=== PATIENT | female | born 1990 | race Two or more races ===

== ENCOUNTER 2024-10-03 16:10 | Emergency (ER) | payer MEDICAID, SELFPAY ==
[2024-10-03 16:20] VITALS: BP 143/82; PULSE 87; RESP 18; TEMP 36.9; O2SAT 99; BMI 34.7
--- NOTE | 2024-10-03 16:25 | XR_ITS ---
Examination: Abdomen sonogram, Limited Date and time of exam: October 03, 2024 1712 hrs. Indications: Epigastric pain beginning 10 minutes ago, worse since yesterday Technique: Real-time mckenzie scale transabdominal sonographic images of the upper abdomen obtained. Findings: Normal gallbladder Normal common bile duct 0.2 cm Pancreatic head 2.5 Liver 13 cm fatty infiltration no focal liver lesions Normal hepatopedal portal venous flow Patent IVC Impression: Normal gallbladder Fatty liver
--- NOTE | 2024-10-03 16:25 | PD.EDRME ---
Rapid Medical Screening Exam RME Arrival date/time: 10/03/24 16:10 34-year-old female presents to the emergency department complains of abdominal pain Chief Complaint: Abdominal Pain Time Seen by Provider: 10/03/24 16:16 Vital signs: Vital Signs Temperature 98.5 F 10/03/24 16:20 Pulse Rate 87 10/03/24 16:20 Respiratory Rate 18 10/03/24 16:20 Blood Pressure 143/82 H 10/03/24 16:20 Pulse Oximetry (%) 99 10/03/24 16:20 Oxygen Delivery Method Room Air 10/03/24 16:20
[2024-10-03 17:09] LABS: Basophils % (Auto) 1 % (0-2.5); Eosinophils # (Auto) 0.1 Thou/mm3 (0.0-0.5); Eosinophils % (Auto) 1 % (0-10); Hematocrit 38.1 % (36.0-46.0); Hemoglobin 12.5 g/dL (12.0-16.0); Immature Granulocytes % (Auto) 0 % (0-0); Immature Granulocytes Auto 0.01 Thou/mm3 (0.00-0.00); Lymphocytes # (Auto) 2.7 Thou/mm3 (1.0-4.8); Lymphocytes % (Auto) 35 % (10-50); Mean Corpuscular HGB Conc 32.8 g/dl (31.0-37.0); Mean Corpuscular Hemoglobin 26.5 pg (25.0-35.0); Mean Corpuscular Volume 81 fL (80-100); Monocytes # (Auto) 0.5 Thou/mm3 (0.0-0.8); Monocytes % (Auto) 7 % (0-12); Neutrophils # (Auto) 4.5 Thou/mm3 (1.8-7.7); Neutrophils % (Auto) 57 % (37-80); Nucleated Red Blood Cell % 0 /100 WBC (0); Platelet Count 324 Thou/mm3 (140-440); RDW Standard Deviation 42.1 fL (36.4-46.3); Red Blood Count 4.71 Miln/mm3 (4.00-5.20); White Blood Count 7.8 Thou/mm3 (3.6-11.0)
[2024-10-03 17:29] LABS: Alanine Aminotransferase 12 U/L (10-49); Albumin, Serum 4.8 gm/dL (3.5-5.0); Albumin/Globulin Ratio 1.7 (1.2-2.2); Alkaline Phosphatase 82 U/L (46-116); Anion Gap 7 (7-16); Aspartate Amino Transferase 18 U/L (0-34); BUN/Creatinine Ratio 16 Ratio (12-20); Bilirubin,Total 0.3 mg/dL (0.3-1.2); Blood Urea Nitrogen 11 mg/dL (9-23); Calcium 9.4 mg/dL (8.3-10.6); Calcium (Corrected) 9.4 mg/dL (8.5-10.1); Carbon Dioxide 23.2 mMol/L (20.0-31.0); Chloride 106 mMol/L (98-107); Creatinine (Component) 0.7 mg/dL (0.6-1.3); Estimated Creatinine Clearance 115.4 mL/min (>60); Globulin 2.9 gm/dL (2.3-3.5); Glucose 90 mg/dL (74-106); Lipase 45 U/L (12-53); Osmolality,Calculated 271 (275-295); Potassium 4.2 mMol/L (3.4-5.1); Sodium 136 mMol/L (136-145); Total Protein 7.7 gm/dL (5.7-8.2); eGFR > 60 See Note
[2024-10-03 18:54] LABS: Collection Type, Urine Clean Catch
[2024-10-03 19:03] LABS: Bilirubin,Urine Negative (Negative); Blood,Urine Negative (Negative); Clarity,Urine Clear (Clear/Hazy); Color,Urine Lt-Yellow (Lt Yel-Yel); Culture Indicated,Urine Not Indicated; Glucose, Urine Negative (Negative); Ketones,Urine Negative (Negative); Leukocyte Esterase,Urine Positive (Negative); Nitrite,Urine Negative (Negative); PH,Urine 8.5 (5.0-7.0); Protein,Urine Trace (Neg - Trace); RBC,Urine 1 /hpf (0-3); Specific Gravity,Urine 1.025 (1.001-1.035); Squamous Epithelial Cell,Urine 3 /hpf (0-5); Urobilinogen,Urine Negative mg/dL (0.0-1.0); WBC,Urine 6 /hpf (0-5)
[2024-10-03 19:09] LABS: HCG Qualitative,Urine Negative
--- NOTE | 2024-10-03 20:31 | PD.EDABDPN ---
ED Abdominal Pain RME/HPI General Chief Complaint: Abdominal Pain Stated complaint: RIGHT ABD PAIN FOR FEW MONTHS Time seen by provider: 10/03/24 16:16 Arrival date/time: 10/03/24 16:10 RME / HPI RME / HPI narrative: 34-year-old female presents to the emergency department complains of abdominal pain, epigastric in location, radiating to the right upper quadrant, for since few months, comes and goes, severity moderate. Patient denies any fever denies any vomiting denies any other complaints no medication was taken prior to arrival. Related Data Home Medications ?Medication ?Instructions ?Recorded ?Confirmed ferrous sulfate 325 mg (65 mg 325 mg PO QDAY 06/02/24 06/17/24 iron) tablet Previous Rx's ?Medication ?Instructions ?Recorded dicyclomine 20 mg tablet 20 mg PO TID PRN abdominal pain 10/03/24 #30 tabs pantoprazole 40 mg tablet,delayed 40 mg PO QDAY #20 tabs 10/03/24 release (Protonix) Allergies Allergy/AdvReac Type Severity Reaction Status Date / Time No Known Allergies Allergy Verified 10/03/24 16:13 Review of Systems Review of Systems Narrative Review of Systems: Review of system reviewed and within normal limits except mentioned in HPI ED Exam Narrative Physical exam: VITAL SIGNS: Reviewed. GENERAL APPEARANCE: Alert and interactive, follows commands, no acute distress, HEAD AND FACE: Non-traumatic. ENT: PERRL, pink conjunctivitis, eyelid no trauma, Mucous membrane moist. NECK: Supple, nontender, no nuchal rigidity. CHEST: No tenderness, no crepitus, no paradoxical movement, no retractions. LUNGS: Clear, well ventilated, symmetric, no rales, no wheezing, no ronchi, no stridor, good breath sounds bilaterally. HEART: Regular rate, regular rhythm, no murmur, no gallops. ABDOMEN: Soft, positive bowel sounds, nondistended, no guarding, nontender, no rebound, no masses, RECTAL: Deferred. GENITAL: Deferred. NEUROLOGICAL: Gross motor function intact sensory function intact, Appropriate for age. MUSCULOSKELETAL: low back nontender, full range of motion. EXTREMITIES: Nontender, full range of motion. SKIN: Color pink, dry, no rash, no lacerations, no abrasions, no contusions. LYMPHATICS: Deferred. Course Quality Measures none Orders Category Date Time Status US gall bladder Stat Exams 10/03/24 16:25 Completed CBC Stat Lab 10/03/24 16:50 Completed Comprehensive Metabolic Panel Stat Lab 10/03/24 16:50 Completed HCG Qualitative,Urine Stat Lab 10/03/24 18:21 Completed Lipase Stat Lab 10/03/24 16:50 Completed UA, C/S IF [Urinalysis, C/S if Indicated] Stat Lab 10/03/24 18:21 Completed Vital Signs Vital signs: Vital Signs Temperature 98.5 F 10/03/24 16:20 Pulse Rate 87 10/03/24 16:20 Respiratory Rate 18 10/03/24 16:20 Blood Pressure 143/82 H 10/03/24 16:20 Pulse Oximetry (%) 99 10/03/24 16:20 Oxygen Delivery Method Room Air 10/03/24 16:20 Abdominal Pain MDM MDM Narrative MDM Narrative:: 34-year-old female presents to the emergency department complains of abdominal pain, epigastric in location, radiating to the right upper quadrant, for since few months, comes and goes, severity moderate. Patient denies any fever denies any vomiting denies any other complaints no medication was taken prior to arrival. Laboratory couple came back unremarkable. Ultrasound of the gallbladder also came back unremarkable. Results discussed with the patient. Patient will be given Protonix and Bentyl. Patient appears nontoxic and hemodynamically stable. Patient discharged home and instructed to follow-up with primary care provider in 24 to 48 hours. Instructed to return to the emergency department immediately if worsening of symptoms Patient data External records reviewed:: None Clinical information provided by:: patient Social determinants that could affect healthcare access:: none Patient has the following chronic illnesses:: None How is presenting disease/condition affected by chronic disease/condition?: no chronic disease Evaluation data The following diagnostics were reviewed and interpreted by me:: lab results and radiology exam(s) Lab and/or radiology exams considered but not ordered:: None Interpretation Summary: Laboratory workup workup unremarkable. Ultrasound of the gallbladder also came back unremarkable. Medications / Prescriptions Medications or Prescriptions considered but not ordered:: None Medication administrations:: None Consultations Consultation(s) initiated? (list below): No Diagnosis Differential diagnosis abdominal pain: abdominal pain, pancreatitis and other (Biliary colic, cholelithiasis) Most likely diagnosis given after review of the tests above:: Epigastric pain, gastritis Admission Indicated Admission indicated?: not indicated Explain why admission is indicated or not indicated:: Stable Admission Request Was there a request for admission?: No Disposition Plan Disposition Plan: Discharge Discharge Attestation Discharge Attestation: The patient was given an opportunity to ask questions and understood the discharge instructions. Discharge instructions specifically effects, indications for sooner follow up or return to the emergency department, and the expected course of current diagnosis. Patient condition: Stable Discharge Plan Plan Patient Disposition: HOME (Self Care) Disposition Comment: stable Prescriptions/Referrals Prescriptions/Med Rec: New pantoprazole [Protonix] 40 mg tablet,delayed release (DR/EC) 40 mg PO QDAY Qty: 20 0RF dicyclomine 20 mg tablet 20 mg PO TID PRN (Reason: abdominal pain) Qty: 30 0RF No Action ferrous sulfate 325 mg (65 mg iron) tablet 325 mg PO QDAY Referrals: Kate [facility] SHUTTLE BUGGY OPERATOR,Porsha Parkinson SHUTTLE BUGGY OPERATOR [Primary Care Provider] - In 1 week Problem List Clinical Impression: Acute epigastric pain Patient/Caregiver Discharge Instructions Discharge Activity: activity as tolerated Education Materials: Understanding the Pain Response Additional Instructions: Thank you for the opportunity for serving you today. You are stable for discharged . You are advised to: Follow-up with your PCP in 1 to 2 days Return to ED for worsening of symptoms Increase oral fluids Take medication as prescribed Print Language: Taiwanese Stand Alone Forms: Linsey Award Info., Patient Portal Info Letter PA/GENETICS PHYSICIAN Supervising Physician MARCELO/COMPA Supervising Physician: MD Ashley
[2024-10-03 20:42] VITALS: BP 127/62; PULSE 72; RESP 19; TEMP 37.2; O2SAT 99
== END 2024-10-03 20:45 | disposition home or self-care (01) ==
PROVIDERS: Nurse Practitioner Primary Care; Emergency Provider Emergency Medicine; PCP Nurse Practitioner Family
DX: R10.13 Epigastric pain (principal)
CPT/HCPCS: 36415; 76705; 80053; 81001; 81025; 83690; 85025; 99284

== ENCOUNTER → 2025-01-08 | Outpatient (BNVA) | payer MEDICAID, SELFPAY | END | disposition home or self-care (01) | PROVIDERS: PCP Nurse Practitioner Family; Referring Provider Nurse Practitioner Family; Visit Provider Nurse Practitioner Family | DX: Z71.2 Person consulting for explanation of examination or test findings (principal); E55.9 Vitamin D deficiency, unspecified; E78.5 Hyperlipidemia, unspecified | CPT/HCPCS: 99212; G0463 ==

== ENCOUNTER → 2025-01-18 | Outpatient (BNVA) | payer MEDICAID, SELFPAY | END | disposition home or self-care (01) | PROVIDERS: PCP Nurse Practitioner Family; Referring Provider Nurse Practitioner Family; Visit Provider Nurse Practitioner Family | DX: Z71.3 Dietary counseling and surveillance (principal); E66.9 Obesity, unspecified; Z68.37 Body mass index [BMI] 37.0-37.9, adult | CPT/HCPCS: 99213 ==

== ENCOUNTER → 2025-02-15 | Outpatient (BNVA) | payer MEDICAID, SELFPAY | END | disposition home or self-care (01) | PROVIDERS: PCP Nurse Practitioner Family; Referring Provider Nurse Practitioner Family; Visit Provider Nurse Practitioner Family | DX: Z71.3 Dietary counseling and surveillance (principal); Z68.37 Body mass index [BMI] 37.0-37.9, adult; E66.9 Obesity, unspecified | CPT/HCPCS: 99213 ==

== ENCOUNTER → 2025-03-10 | Outpatient (CLI) | payer MEDICAID, SELFPAY ==
--- NOTE | 2025-03-10 11:15 | XR_ITS ---
Examination: Abdomen sonogram, Limited Date and time of exam: March 10, 2025 1121 hours INDICATIONS: Intermittent right upper abdominal pain beginning one year ago Technique: Real-time mckenzie scale transabdominal sonographic images of the upper abdomen obtained. Findings: Normal gallbladder Normal common bile duct 0.3 cm Pancreatic head 2.1 cm Liver 14.7 cm fatty infiltration smooth contour no focal liver lesions Normal hepatopedal portal venous flow Patent IVC IMPRESSION: Normal gallbladder Fatty liver
== END | disposition home or self-care (01) ==
LOC: CDIM 11:09
PROVIDERS: PCP Nurse Practitioner Family; Referring Provider Surgery; Visit Provider Surgery
DX: K76.0 Fatty (change of) liver, not elsewhere classified (principal); R13.10 Dysphagia, unspecified
CPT/HCPCS: 76705

== ENCOUNTER → 2025-03-15 | Outpatient (BNVA) | payer MEDICAID, SELFPAY | END | disposition home or self-care (01) | PROVIDERS: PCP Nurse Practitioner Family; Referring Provider Nurse Practitioner Family; Visit Provider Nurse Practitioner Family | DX: Z71.3 Dietary counseling and surveillance (principal); E66.9 Obesity, unspecified; Z68.37 Body mass index [BMI] 37.0-37.9, adult; K59.00 Constipation, unspecified | CPT/HCPCS: 99213 ==

== ENCOUNTER → 2025-04-16 | Outpatient (BNVA) | payer MEDICAID, SELFPAY | END | disposition home or self-care (01) | PROVIDERS: PCP Nurse Practitioner Family; Referring Provider Nurse Practitioner Family; Visit Provider Nurse Practitioner Family | DX: Z71.3 Dietary counseling and surveillance (principal); E66.9 Obesity, unspecified; Z68.36 Body mass index [BMI] 36.0-36.9, adult; K59.00 Constipation, unspecified; E78.5 Hyperlipidemia, unspecified | CPT/HCPCS: 99214 ==

== ENCOUNTER → 2025-05-03 | Outpatient (BNVA) | payer MEDICAID, SELFPAY | END | disposition home or self-care (01) | PROVIDERS: PCP Nurse Practitioner Family; Referring Provider Nurse Practitioner Family; Visit Provider Nurse Practitioner Family | DX: Z71.2 Person consulting for explanation of examination or test findings (principal); E78.5 Hyperlipidemia, unspecified; E55.9 Vitamin D deficiency, unspecified | CPT/HCPCS: 99212; G0463 ==

== ENCOUNTER → 2025-05-13 | Outpatient (BNVA) | payer MEDICAID, SELFPAY | END | disposition home or self-care (01) | PROVIDERS: PCP Nurse Practitioner Family; Referring Provider Nurse Practitioner Family; Visit Provider Nurse Practitioner Family | DX: Z71.3 Dietary counseling and surveillance (principal); E66.09 Other obesity due to excess calories; Z68.35 Body mass index [BMI] 35.0-35.9, adult | CPT/HCPCS: 99213 ==

== ENCOUNTER → 2025-06-18 | Outpatient (BNVA) | payer MEDICAID, SELFPAY | END | disposition home or self-care (01) | PROVIDERS: PCP Nurse Practitioner Family; Referring Provider Nurse Practitioner Family; Visit Provider Nurse Practitioner Family | DX: Z71.3 Dietary counseling and surveillance (principal); E66.812 Obesity, class 2; Z68.35 Body mass index [BMI] 35.0-35.9, adult | CPT/HCPCS: 99213 ==

== ENCOUNTER → 2025-07-26 | Outpatient (BNVA) | payer MEDICAID, SELFPAY | END | disposition home or self-care (01) | PROVIDERS: PCP Nurse Practitioner Family; Referring Provider Nurse Practitioner Family; Visit Provider Nurse Practitioner Family | DX: Z71.3 Dietary counseling and surveillance (principal); E66.812 Obesity, class 2; Z68.35 Body mass index [BMI] 35.0-35.9, adult | CPT/HCPCS: 99212; G0463 ==

== ENCOUNTER → 2025-08-25 | Outpatient (BNVA) | payer MEDICAID, SELFPAY | END | disposition home or self-care (01) | PROVIDERS: PCP Nurse Practitioner Family; Referring Provider Nurse Practitioner Family; Visit Provider Nurse Practitioner Family | DX: Z71.3 Dietary counseling and surveillance (principal); Z68.35 Body mass index [BMI] 35.0-35.9, adult; E66.812 Obesity, class 2; Z11.3 Encounter for screening for infections with a predominantly sexual mode of transmission; Z13.1 Encounter for screening for diabetes mellitus; E55.9 Vitamin D deficiency, unspecified; E78.5 Hyperlipidemia, unspecified; Z23 Encounter for immunization | CPT/HCPCS: 90471; 90715; 99215 ==

== ENCOUNTER → 2025-09-16 | Outpatient (BNVA) | payer MEDICAID, SELFPAY | END | disposition home or self-care (01) | PROVIDERS: PCP Nurse Practitioner Primary Care; Referring Provider Nurse Practitioner Primary Care; Visit Provider Nurse Practitioner Primary Care | DX: M54.50 Low back pain, unspecified (principal); N30.01 Acute cystitis with hematuria | CPT/HCPCS: 81001; 99214 ==

== ENCOUNTER → 2025-09-17 | Outpatient (CLI) | payer MEDICAID, SELFPAY ==
--- NOTE | 2025-09-17 12:54 | XR_ITS ---
EXAMINATION: Lumbar spine 3 views TECHNIQUE: AP lateral: Lateral lower lumbar spine 3 views Date and time: September 17, 2025, 1320 hours INDICATIONS: Lower back pain beginning 5 days ago. FINDINGS: Satisfactory alignment lumbar vertebral bodies No lumbar fracture Mild to moderate lumbar disc narrowing most prominent at L4-L5 Mild lumbar spondylosis IMPRESSION: Mild to moderate diffuse lumbar degenerative disc disease
== END | disposition home or self-care (01) ==
PROVIDERS: PCP Nurse Practitioner Primary Care; Referring Provider Nurse Practitioner Primary Care; Visit Provider Nurse Practitioner Primary Care
DX: M51.360 Other intervertebral disc degeneration, lumbar region with discogenic back pain only (principal)
CPT/HCPCS: 72100

== ENCOUNTER 2025-09-19 11:34 | Emergency (ER) | payer MEDICAID, SELFPAY ==
[2025-09-19 12:01] VITALS: BP 125/92; PULSE 81; RESP 19; TEMP 36.8; O2SAT 100; BMI 33.8
--- NOTE | 2025-09-19 12:07 | XR_ITS ---
Examination: Abdomen AP single view Technique: AP portable supine abdomen, single view Exam date and time: September 19, 2025, 1405 hours INDICATIONS: Left-sided abdominal pain beginning 4 days ago. FINDINGS: Moderate stool throughout the colon No obstruction. No free air These films do not include the hemidiaphragms IMPRESSION: Moderate stool throughout the colon, no obstruction
--- NOTE | 2025-09-19 12:12 | PD.EDRME ---
Rapid Medical Screening Exam [facility] Arrival date/time: 09/19/25 11:34 This is a 35-year-old female that comes into the emergency room with complaints of left lower quadrant pain that started today. Patient states that the pain is on the left lower quadrant where she used to have a stoma. Patient states she had an ovarian cyst removed a couple years ago and the surgeon accidentally perforated her intestine and she required a stoma. Patient states the pain is surrounding that area. Patient also thinks that she might be constipated. Patient states since that surgery she has had on and off constipation. Patient also complains of nausea and vomiting. Patient does not think she is . I have greeted and performed a focused initial assessment of this patient. Initial appropriate labs ordered at this time. A comprehensive ED assessment and evaluation of the patient and analysis of all test and completion of medical decision making process will be conducted by additional ED provider. Chief Complaint: Abdominal Pain Time Seen by Provider: 09/19/25 11:56 Vital signs: Vital Signs Temperature 98.2 F 09/19/25 12:01 Pulse Rate 81 09/19/25 12:01 Respiratory Rate 19 09/19/25 12:01 Blood Pressure 125/92 H 09/19/25 12:01 Pulse Oximetry (%) 100 09/19/25 12:01 Oxygen Delivery Method Room Air 09/19/25 12:01 Exam: Diffuse left lower quadrant pain, alert and oriented, breathing even and unlabored Clinical Impression: Abdominal pain
[2025-09-19 12:52] LABS: Basophils # (Auto) 0.1 Thou/mm3 (0.0-0.2); Basophils % (Auto) 1 % (0-2.5); Eosinophils # (Auto) 0.1 Thou/mm3 (0.0-0.5); Eosinophils % (Auto) 1 % (0-10); Hematocrit 40.6 % (36.0-46.0); Hemoglobin 13.8 g/dL (12.0-16.0); Immature Granulocytes Auto 0.04 Thou/mm3 (0.00-0.00); Lymphocytes # (Auto) 2.0 Thou/mm3 (1.0-4.8); Lymphocytes % (Auto) 23 % (10-50); Mean Corpuscular HGB Conc 34.0 g/dl (31.0-37.0); Mean Corpuscular Hemoglobin 28.0 pg (25.0-35.0); Mean Corpuscular Volume 82 fL (80-100); Monocytes # (Auto) 0.4 Thou/mm3 (0.0-0.8); Monocytes % (Auto) 5 % (0-12); Neutrophils # (Auto) 6.2 Thou/mm3 (1.8-7.7); Neutrophils % (Auto) 70 % (37-80); Nucleated Red Blood Cell # 0.00 Thou/mm3 (0.00-0.00); Nucleated Red Blood Cell % 0 /100 WBC (0); Platelet Count 304 Thou/mm3 (140-440); RDW Standard Deviation 40.5 fL (36.4-46.3); Red Blood Count 4.93 Miln/mm3 (4.00-5.20); White Blood Count 8.8 Thou/mm3 (3.6-11.0)
[2025-09-19 13:05] LABS: Collection Type, Urine Voided
[2025-09-19 13:18] LABS: Alanine Aminotransferase 11 U/L (10-49); Albumin, Serum 5.2 gm/dL (3.5-5.0); Albumin/Globulin Ratio 2.1 (1.2-2.2); Alkaline Phosphatase 70 U/L (46-116); Anion Gap 11 (7-16); Aspartate Amino Transferase 23 U/L (0-34); BUN/Creatinine Ratio 9 Ratio (12-20); Bilirubin,Total 0.5 mg/dL (0.3-1.2); Blood Urea Nitrogen 6 mg/dL (9-23); Calcium 9.7 mg/dL (8.3-10.6); Calcium (Corrected) 9.7 mg/dL (8.5-10.1); Carbon Dioxide 22.0 mMol/L (20.0-31.0); Chloride 105 mMol/L (98-107); Creatinine (Component) 0.7 mg/dL (0.6-1.3); Estimated Creatinine Clearance 112.7 mL/min (>60); Globulin 2.5 gm/dL (2.3-3.5); Glucose 96 mg/dL (74-106); Lipase 81 U/L (12-53); Osmolality,Calculated 273 (275-295); Potassium 4.3 mMol/L (3.4-5.1); Sodium 138 mMol/L (136-145); Total Protein 7.7 gm/dL (5.7-8.2); eGFR > 60 See Note
[2025-09-19 13:49] LABS: HCG Qualitative,Urine Negative
[2025-09-19 13:50] LABS: Bilirubin,Urine Negative (Negative); Blood,Urine Negative (Negative); Clarity,Urine Clear (Clear/Hazy); Color,Urine Yellow (Lt Yel-Yel); Glucose, Urine Negative (Negative); Ketones,Urine Negative (Negative); Leukocyte Esterase,Urine Positive (Negative); Nitrite,Urine Negative (Negative); PH,Urine 7.0 (5.0-7.0); Protein,Urine Negative (Neg - Trace); RBC,Urine 1 /hpf (0-3); Specific Gravity,Urine 1.019 (1.001-1.035); Squamous Epithelial Cell,Urine 2 /hpf (0-5); Urobilinogen,Urine Negative mg/dL (0.0-1.0); WBC,Urine 11 /hpf (0-5)
[2025-09-19 13:56] LABS: Culture Indicated,Urine Yes
--- NOTE | 2025-09-19 15:18 | EDNOTE_ITS ---
<Statement entered by Suzanne Lomas MD - 09/21/25 16:28> I, Suzanne Lomas MD, have reviewed the history, exam, and assessment of the patient. I have evaluated the patient independently and agree with the plan of care documented by [ ]. All diagnostic studies were reviewed and discussed. I confirm the diagnosis as documented by the Resident. I was present during the Medical Decision Making for this patient. The patient's plan of care was created between myself and the Resident and consistent with our discussion of the patient's case. 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 Pain started overnight waking her up from her sleep pain and is currently 7 out of 10 but increases to 10 out of 10 with palpation. Patient has noticed increased protrusion of abdomen adjacent to stoma. Patient stated fibrous changes have been present before but this is a new change. Last bowel movement 3 days ago. Patient continues to pass gas. Denied diarrhea. Denied blood in stool. Denied chest pain. Denied shortness of breath. CBC CMP Lipase KUB CT abdomen Pelvis w/ con Impression: Abdominal pain Related Data Previous Rx's ?Medication ?Instructions ?Recorded tirzepatide (weight loss) 10 10 mg (0.5 mL) subcut QWE EK #2 mL 08/25/25 mg/0.5 mL subcutaneous pen injector (Zepbound) lidocaine 4 % topical patch 1 patch topical QDAY PRN p ain #5 ea 09/16/25 (AsperFlex (lidocaine)) nitrofurantoin macrocrystal 100 mg 100 mg PO BID #10 c aps 09/16/25 capsule polyethylene glycol 3350 17 4 g PO QDAY PRN constipati on 1 09/19/25 gram/dose oral powder (Miralax) month #119 grams Allergies Allergy/AdvReac Type Severity Reaction Status Date / Time No Known Allergies Allergy Verified 09/16/25 15:59 Review of Systems Review of Systems Narrative Review of Systems: General appearance: NO weight change, NO fatigue, NO weakness, NO fever, NO chills, NO night sweats, No cough Skin: NO rash, NO itching, NO sores, NO moles HEENT: NO Trauma, NO nausea, NO vomiting, NO visual changes, NO blurry vision, NO double vision, NO tinnitus, NO vertigo, NO ear discharge, NO rhinorrhea, NO stuffiness, NO sneezing, NO allergy, NO epistaxis. NO Hoarseness, NO sore throat, NO swollen neck. Cardiac: NO Palpitations, NO dyspnea on exertion, NO orthopnea, NO paroxysmal nocturnal dyspnea, NO edema Respiratory: NO Shortness of Breath, NO Wheezing, NO Cough, NO Sputum, NO hemoptysis GI:NO appetite, NO nausea, NO vomiting, NO dysphagia, NO changes in bowel frequency, NO stool color, NO diarrhea, NO constipation, NO hemetemesis, NO hemorrhoids, NO melena, NO hematechezia, Yes abdominal pain at left lower quadrant w/ small 3 cm protrusion when patient lays on her side. NO jaundice Renal: NO frequency, NO hesitancy, NO urgency, NO hematuria, NO nocturia, NO incontinence MSK: NO muscle weakness, NO gout, NO arthritis, NO muscle stiffness Neuro: NO headaches, NO tremors, NO weakness, NO paralysis, NO seizures, NO loss of consciousness, NO numbness. Hem: NO anemia, NO easy bruising/bleeding, NO petechiae, NO purpura Endo: NO heat/cold intolerance, NO excessive sweating, NO polyuria, NO polydipsia, NO polyphagia, NO thyroid problems, NO diabetes Pysch: NO mood, NO anxiety, NO depression ED Exam Narrative Physical exam: General Appearance: Alert & Oriented X3, well-nourished female who is lying in bed in distress secondary to pain at the left lower quadrant. HEENT: Skull symmetrical and atraumatic. Conjunctivae pink and moist. Pupils equal, round, reactive to light and accommodation (PERRL). External ear without lesion or discharge. Straight, nares patient, mucosa pink, no discharge. Cardio: Normal Rate and Rhythm with S1 and S2 heart sounds. No murmurs or extra heart sounds auscultated. No bruits on carotid auscultation. No peripheral edema or cyanosis. Lungs: Symmetric with good expansion. Chest and back non-tender. Breath sounds vesicular without crackles, wheezing or rhonchi Abdomen: Left lower quadrant tenderness, Non-distended, hypoactive Bowel Sounds, crane negative, possible hernia at left lower quadrant adjacent to stoma. Neuro: Alert, cooperative, oriented to person, place, and time. Speech clear. CN grossly intact. Upper motor strength 5/5 and Lower motor strength 5/5. Sensation intact. Course Quality Measures none Orders Category Date Time Status CT Screening NOW Care 09/19/25 15:51 Active Insert IV NOW Care 09/19/25 16:[address] abdomen pelvis w con Stat Exams 09/19/25 15:51 Taken KUB [XR abdomen 1V] Stat Exams 09/19/25 12:07 Completed CBC Stat Lab 09/19/25 12:32 Completed Comprehensive Metabolic Panel Stat Lab 09/19/25 12:32 Completed HCG Qualitative,Urine Stat Lab 09/19/25 12:43 Completed HCG,Qualitative Serum Stat Lab 09/19/25 12:32 Completed Lipase Stat Lab 09/19/25 12:32 Completed Urinalysis, C/S if Indicated Stat Lab 09/19/25 12:43 Completed Urine Culture Stat Lab 09/19/25 12:43 Received Ketorolac Inj [Toradol Inj] Med 09/19/25 15:46 Discontinued 30 mg IM X1 ONE Vital Signs Vital signs: Vital Signs Temperature 98.2 F 09/19/25 12:01 Pulse Rate 81 09/19/25 12:01 Respiratory Rate 19 09/19/25 12:01 Blood Pressure 125/92 H 09/19/25 12:01 Pulse Oximetry (%) 100 09/19/25 12:01 Oxygen Delivery Method Room Air 09/19/25 12:01 Abdominal Pain MDM Patient data External records reviewed:: [facility] previous records Clinical information provided by:: patient and family Social determinants that could affect healthcare access:: none Patient has the following chronic illnesses:: None, history of Stoma closure 3 years ago How is presenting disease/condition affected by chronic disease/condition?: exacerbated by (by history of abdominal procedures ) Evaluation data The following diagnostics were reviewed and interpreted by me:: lab results, radiology exam(s) and EKG tracing(s) Lab and/or radiology exams considered but not ordered:: None Interpretation Summary: Patient presented with chief complain of left lower abdominal pain adjacent to stoma with no leukocytosis and no pyrexia noted. KUB noted for stool through out colon. Recommended patient increase fiber diet or use supplemetns. No obstructions noted on KUB. CT Abdomen/Pelvis noted for hernia and was reduciable at bedside. - The patient's plan was discussed with attending Dr. Cesilia Chapa MD PGY2 Internal Medicine Medications / Prescriptions Medications or Prescriptions considered but not ordered:: None Medication administrations:: Medication Administration History Discontinued Medications Ketorolac Tromethamine (Ketorolac Inj 30 Mg/Ml Vial) 30 mg IM X1 ONE Stop: 09/19/25 15:47 Last Admin: 09/19/25 16:09 Dose: 30 mg Documented By: MARÍA ELENA same as above Consultations Consultation(s) initiated? (list below): No Diagnosis Differential diagnosis abdominal pain: abdominal pain, constipation, diverticulitis and other (incarcerated Hernia ) Most likely diagnosis given after review of the tests above:: Patient likely has a reducicble hernia likely given past medical history of ab dominal surgery from Stoma. Less likely secondary to small bowel obstruction as KUB was negative. Stool through out colon and may have some constiaption at baseline. Admission Indicated Admission indicated?: not indicated Admission Request Was there a request for admission?: No Disposition Plan Disposition Plan: Discharge Discharge Attestation Discharge Attestation: The patient and all family members were given an opportunity to ask questions and understood the discharge instructions. Discharge instructions specifically effects, indications for sooner follow up or return to the emergency department, and the expected course of current diagnosis. Patient condition: Stable Discharge Plan Plan Patient Disposition: HOME (Self Care) Patient condition on transfer: Stable Prescriptions/Referrals Prescriptions/Med Rec: New polyethylene glycol 3350 [Miralax] 17 gram/dose powder 4 g PO QDAY PRN (Reason: constipation) 30 Days Qty: 119 0RF Continued Zepbound 10 mg/0.5 mL pen injector 10 mg subcut QWEEK Qty: 2 0RF lidocaine [AsperFlex (lidocaine)] 4 % adhesive patch,medicated 1 patch topical QDAY PRN (Reason: pain) Qty: 5 1RF nitrofurantoin macrocrystal 100 mg capsule 100 mg PO BID Qty: 10 0RF Rx Instructions: must administer with a meal/food Referrals: Kate [facility] B[employer] STILL OPERATOR,Porsha Parkinson BENZOL STILL OPERATOR [Primary Care Provider, Family Practice] - In 1 week Problem List Clinical Impression: Hernia of abdominal cavity, Reducible bulge of abdominal wall Patient/Caregiver Discharge Instructions Education Materials: ED Hernia (Adult) Print Language: Icelandic Stand Alone Forms: Linsey Award Info., Patient Portal Info Letter
--- NOTE | 2025-09-19 15:51 | XR_ITS ---
Examination: CT abdomen with intravenous contrast CT pelvis with intravenous contrast 2-D coronal reconstructions 2-D sagittal reconstructions Date and time of exam: September 19, 2025, 1702 hours, comparison September 30, 2023 INDICATIONS: Abdominal pain today, history colostomy reversal 3 years ago., History multiple pelvic abscesses on CT study September 30, 2023 CTDI: vol (mGy) 10.6 DLP: (mGycm) 523 Technique: Multiple axial sections of the abdomen and pelvis have been obtained. 64 slice high-resolution scanner used. 3 mm axial sections have been obtained, post intravenous injection 60 cc [id number] 2-D sagittal, coronal reconstructions obtained. Low dose protocols were performed. One or more of the following dose reduction techniques were used; automated exposure control, adjustment of the mA and/or KV according to patient size, use of iterative reconstruction technique. Findings: No focal liver or splenic lesion No gallstones No pancreatic or adrenal mass No renal or ureteral calculi, no hydronephrosis Aorta normal size No bowel obstruction Fluid collection in the left anterior lower pelvic wall, 5.7 x 3.2 cm Bilateral pelvic cystic masses On the right side 4.8 cm on the left side 5.7 cm Anteverted uterus Urinary bladder intact IMPRESSION: Fluid collection in the left anterior lower pelvic wall 5.7 x 3.2 cm, differential would include seroma, hematoma, abscess Bilateral pelvic cystic masses, recommend pelvic sonography follow-up
[2025-09-19] MEDS: KETOROLAC INJ 30 MG/ML VIAL IM (16:09)
[2025-09-19 16:15] VITALS: BP 136/88; PULSE 88; RESP 16; TEMP 36.7; O2SAT 99
[2025-09-19 16:33] LABS: HCG,Qualitative Serum Negative
[2025-09-19 17:22] VITALS: BP 109/69; PULSE 72; RESP 16; TEMP 36.9; O2SAT 98
== END 2025-09-19 17:31 | disposition home or self-care (01) ==
PROVIDERS: Nurse Practitioner Family; Emergency Provider Emergency Medicine; PCP Nurse Practitioner Family
DX: K46.9 Unspecified abdominal hernia without obstruction or gangrene (principal)
CPT/HCPCS: 36415; 74018; 74177; 80053; 81001; 81025; 83690; 84703; 85025; 87086; 96372; 99283; A4649; J1885; Q9967

== ENCOUNTER → 2025-09-22 | Outpatient (BNVA) | payer MEDICAID, SELFPAY | END | disposition home or self-care (01) | PROVIDERS: PCP Nurse Practitioner Family; Referring Provider Nurse Practitioner Family; Visit Provider Nurse Practitioner Family | DX: Z09 Encounter for follow-up examination after completed treatment for conditions other than malignant neoplasm (principal); Z71.3 Dietary counseling and surveillance; K46.9 Unspecified abdominal hernia without obstruction or gangrene; E66.812 Obesity, class 2; Z68.35 Body mass index [BMI] 35.0-35.9, adult; Z28.21 Immunization not carried out because of patient refusal | CPT/HCPCS: 99214 ==

== ENCOUNTER → 2025-09-28 | Outpatient (BNVA) | payer MEDICAID, SELFPAY | END | disposition home or self-care (01) | PROVIDERS: PCP Nurse Practitioner Family; Referring Provider Nurse Practitioner Family; Visit Provider Nurse Practitioner Family | DX: Z71.2 Person consulting for explanation of examination or test findings (principal); E55.9 Vitamin D deficiency, unspecified; E78.5 Hyperlipidemia, unspecified; Z28.21 Immunization not carried out because of patient refusal | CPT/HCPCS: 99213 ==

== ENCOUNTER → 2025-09-30 | Outpatient (BNVA) | payer MEDICAID, SELFPAY | END | disposition home or self-care (01) | PROVIDERS: PCP Nurse Practitioner Family; Referring Provider Nurse Practitioner Family; Visit Provider Nurse Practitioner Family | DX: Z71.2 Person consulting for explanation of examination or test findings (principal); M51.369 Other intervertebral disc degeneration, lumbar region without mention of lumbar back pain or lower extremity pain; K46.9 Unspecified abdominal hernia without obstruction or gangrene; N83.202 Unspecified ovarian cyst, left side; Z28.21 Immunization not carried out because of patient refusal | CPT/HCPCS: 99214 ==